=== PATIENT | male | born 1980 | race Caucasian/White ===

== ENCOUNTER 2018-06-20 13:23 | Outpatient (CLI) | payer OTHER, SELFPAY ==
--- NOTE | 2018-06-21 07:22 | ONE_ITS ---
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 ASSESSMENT Hyperextension injury right thumb, improving. PLAN He has been wearing a thumb splint, which I have advised him to begin weaning. He can use it for tasks that are highly repetitive. He is performing stretches, having no difficulty with the grasping movements required for his job. We discussed possibly a short course of PT for further exercises, but after discussion, we both agreed to hold on this and follow his progress for another week or so. I am returning him to work without limitations. I will see him back within two weeks and hope to be able to release at that time. Counseled about need for smoking cessation. Greater than 50% of this visit was spent in planning and coordinating care. SUBJECTIVE He comes in today for evaluation of right thumb pain, which began suddenly on May 24. He was performing a demonstration of a technique for disarming a suspect when his right thumb became hyperextended. He demonstrates to me that as he grabbed his co-worker's arm, most of his weight came down on the thumb when it slipped off of the intended target. He says he had an Martell wrap in his car, which he applied immediately and he used ice as soon as it was available. Once home, he had no difficulty with his usual activities or sleeping that night. He did use naproxen 440 mg, which he takes on a regular basis for an unrelated problem. He did note some swelling at the base of the right thumb initially, but he tells me that swelling, as well as discomfort have steadily improved. He went on vacation on the and returned to work on the . The discomfort and swelling both continued to improve. He has been able to perform his full functions of his job without difficulty. 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 He does tell me that every day this continues to show improvement however. REVIEW OF SYSTEMS Feels generally well. No unusual swelling of upper extremities. No numbness. No tingling. No paresthesias. No muscle weakness. No chest pain, cough, wheeze or dyspnea, abdominal pain, nausea, vomiting or GI complaints. 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 SOCIAL HISTORY He is . HABITS He smokes a half pack of cigarettes daily. He exercises faithfully. One or two alcoholic beverages per month. MEDICATIONS He takes no routine medications. ALLERGIES He has no known allergies. OBJECTIVE GENERAL - This is a 37-year-old male who was alert, pleasant, cooperative and in no acute distress. He looks a little older than his stated 37 years. Exam of right upper extremity - There is no erythema, edema, ecchymoses or warmth. Exam of wrist - No tenderness to palpation, full flexion and extension. Exam right thumb - No swelling, minimal tenderness anteriorly over the CMC. None laterally. No pain or swelling at the IP. He has a little puffiness across the thenar eminence. No tenderness along the first metacarpal. Able to fully oppose the thumb without discomfort. Mild discomfort with full 70 degree abduction. No tenderness in the remaining digits or metacarpals. Hand grasps are 5/5 bilaterally. Radial pulses are 2+. Sensory of both hands is intact.
== END 2018-06-20 13:24 ==
PROVIDERS: Visit Provider Nurse Practitioner Family
DX: S69.91XA Unspecified injury of right wrist, hand and finger(s), initial encounter (principal); M79.644 Pain in right finger(s); Y99.0 Civilian activity done for income or pay
CPT/HCPCS: 99203

== ENCOUNTER 2018-07-04 14:00 | Outpatient (CLI) | payer BC, SELFPAY ==
--- NOTE | 2018-07-04 14:02 | DI.RAD_ITS ---
SYMPTOMS/DIAGNOSIS: LEFT THUMB PAIN LEFT THUMB: Three views. Comparison is 08/15/17 and 09/08/17. There are findings of an old healed fracture involving the terminal tuft of the distal phalanx of the thumb. No acute fracture or dislocation is seen. No radiopaque foreign bodies are seen in the soft tissues. IMPRESSION: Old healed fracture of the distal phalanx of the thumb.
== END 2018-07-04 14:20 ==
PROVIDERS: Visit Provider Student in an Organized Health Care Education/Training Program
DX: M79.645 Pain in left finger(s) (principal); S62.522D Displaced fracture of distal phalanx of left thumb, subsequent encounter for fracture with routine healing
CPT/HCPCS: 73140

== ENCOUNTER 2024-12-03 02:29 | Outpatient (CLI) | payer BC, SELFPAY ==
--- NOTE | 2024-12-03 | DI.RAD_ITS ---
Exam(s) XR KNEE RT 3V AP,LAT,SUNIL XR KNEE LT 3V AP,LAT,SUNIL EXAM: XR KNEE RT 3V AP,LAT,USNIL CLINICAL HISTORY: RT KNEE PAIN, M25.561. TECHNIQUE: 2D digital imaging was performed. Three views of both knees. COMPARISON: CR XR KNEE LT 3V AP,LAT,SUNIL from 12/03/2024 FINDINGS: BONES: No acute fracture is present. No bony destructive lesion is seen. JOINTS: The knee is normally aligned. No joint effusion is seen. The joint spaces are maintained. No significant degenerative changes. SOFT TISSUE: Normal. IMPRESSION: Unremarkable radiographs of the right knee. DATA REPOSITORY: RADIATION DOSE DELIVERED:
--- NOTE | 2024-12-03 | DI.RAD_ITS ---
Exam(s) XR KNEE RT 3V AP,LAT,SUNIL XR KNEE LT 3V AP,LAT,SUNIL EXAM: XR KNEE RT 3V AP,LAT,SUNIL CLINICAL HISTORY: RT KNEE PAIN, M25.561. TECHNIQUE: 2D digital imaging was performed. Three views of both knees. COMPARISON: CR XR KNEE LT 3V AP,LAT,SUNIL from 12/03/2024 FINDINGS: BONES: No acute fracture is present. No bony destructive lesion is seen. JOINTS: The knee is normally aligned. No joint effusion is seen. The joint spaces are maintained. No significant degenerative changes. SOFT TISSUE: Normal. IMPRESSION: Unremarkable radiographs of the right knee. DATA REPOSITORY: RADIATION DOSE DELIVERED:
== END 2024-12-03 02:49 ==
LOC: DI 02:30
PROVIDERS: Visit Provider Family Medicine
DX: M25.561 Pain in right knee (principal); M25.562 Pain in left knee
CPT/HCPCS: 73562

== ENCOUNTER 2024-12-23 12:34 | Outpatient (REF) | payer BC, SELFPAY ==
[2024-12-23 16:16] LABS: ALT 23 U/L (16-63); AST 10 U/L (15-37); Albumin 4.2 g/dL (3.4-5.0); Alkaline Phosphatase 98 U/L (46-116); Anion Gap 9.6 mmol/L (3-11); BUN 15 mg/dL (7-18); CO2 27.4 mmol/L (21.0-32.0); Calcium 9.7 mg/dL (8.5-10.1); Calculated LDL 108 mg/dL (<100); Chloride 108 mmol/L (98-107); Cholesterol 176 mg/dL (<200); Estimated GFR 95.18 (mL/min/1.73m2); Glucose 105 mg/dL (74-106); HDL Cholesterol 43 mg/dL (>or=40); Potassium 4.8 mmol/L (3.5-5.1); Sodium 145 mmol/L (136-145); Total Protein 7.1 g/dL (6.4-8.2); Triglyceride 127 mg/dL (<150)
== END 2024-12-23 12:35 | disposition home or self-care (01) ==
LOC: NCHCN 12:34
PROVIDERS: PCP Family Medicine; Visit Provider Family Medicine
DX: E78.5 Hyperlipidemia, unspecified (principal); F17.210 Nicotine dependence, cigarettes, uncomplicated
CPT/HCPCS: 80053; 80061